=== PATIENT | male | born 1950 | race Caucasian/White ===

== ENCOUNTER → 2018-03-09 | Outpatient (CLI) | payer OTHER ==
[2015-04-01 10:18] VITALS: BP 133/83
[~2018-03-09] MED LIST: IOHEXOL 300 MG/ML 100ML VIAL. IV ONE
--- NOTE | 2018-03-09 14:19 | RAD ---
CT CHEST W/CONTRAST Indication: Shortness of air, cough, abnormal weight loss Technique: Postcontrast CT imaging was performed of the chest, multiplanar reconstruction images submitted. One or more of the following individualized dose reduction techniques were utilized for this examination: 1. Automated exposure control 2. Adjustment of the mA and/or kV according to patient size 3. Use of iterative reconstruction technique. Contrast: 75 cc Omnipaque 300 Comparison: June 23, 2006 Findings: There is centrilobular emphysema. Minimal density in the tracheal lumen more likely due to mucus. There is no infiltrate, pleural or pericardial effusion, pneumothorax. There is no suspicious pulmonary nodularity. Thoracic aortic caliber is within normal limits without intraluminal flap. There is small hypodense lesion of the right thyroid gland about 0.7 cm. No significantly enlarged nodes are identified of the chest. There is probable mild coronary calcification. There is small hiatal hernia, relative nonspecific wall thickening of involved segment. There is a hypodense lesion inferiorly of the right lobe of the liver about 1.5 cm in size with internal density characteristics suggestive of a cyst 4-5 Hounsfield units. There is mild superior thoracic levoscoliosis. IMPRESSION: 1. There is centrilobular emphysema. 2. There is a small hypodense lesion right thyroid gland. 3. There is a small hiatal hernia, nonspecific wall thickening of involved segment. Electronically signed by: Clyde Monroe MD (03/09/2018 2:16 PM) [id number]
== END | disposition home or self-care (01) ==
LOC: CT 11:36
PROVIDERS: ATTEND Physician Assistant
DX: J43.2 Centrilobular emphysema (principal); R06.02 Shortness of breath; R63.4 Abnormal weight loss; E07.9 Disorder of thyroid, unspecified; K44.9 Diaphragmatic hernia without obstruction or gangrene
CPT/HCPCS: 71260; Q9967

== ENCOUNTER → 2018-03-23 | Outpatient (CLI) | payer OTHER ==
[2015-04-01 10:18] VITALS: BP 133/83
--- NOTE | 2018-03-23 16:23 | RAD ---
Examination: Ultrasound thyroid HISTORY: History of thyroid nodule on CT scan COMPARISON: None available. FINDINGS: The right lobe of the thyroid gland measures 4.7 x 1.8 x 1.3 cm. The left lobe of the thyroid gland measures 4.5 x 1.5 x 1.2 cm. Multiple solid nodules identified in the right lobe of the thyroid gland with the largest measuring 1.1 cm. The isthmus measures 3.8 mm in AP dimension. Solid-appearing nodules identified in the left lobe of the thyroid gland with the largest measuring 1.6 cm. IMPRESSION: Multiple complex nodules identified in the right and left lobes of thyroid gland with the largest measuring 1.6 cm in the left lobe. ACR TR 3. Recommend close interval follow-up examination in 6 months. Electronically signed by: Julián Hanson MD (03/23/2018 4:20 PM) [id number]
== END | disposition home or self-care (01) ==
LOC: US 15:00
PROVIDERS: ATTEND Physician Assistant
DX: E04.2 Nontoxic multinodular goiter (principal)
CPT/HCPCS: 76536

== ENCOUNTER → 2018-05-25 | Outpatient (CLI) | payer OTHER ==
[2015-04-01 10:18] VITALS: BP 133/83
--- NOTE | 2018-05-25 17:05 | RAD ---
CHEST PA LATERAL Clinical indications: copd, dyspnea COMPARISON: No previous chest x-rays available. Findings: Hyperinflation is seen consistent with COPD. No acute lung infiltrate or pleural effusion or pulmonary edema or lung mass or pneumothorax is seen. The heart size, pulmonary vasculature, mediastinum and both jenny are unremarkable. The osseous structures appear intact. Impression: No acute radiographic abnormality is seen. Electronically signed by: Betito Nettles MD (05/25/2018 5:01 PM) [place] [id number]
== END | disposition home or self-care (01) ==
LOC: RAD 12:07
PROVIDERS: ATTEND Internal Medicine Pulmonary Disease
DX: R06.00 Dyspnea, unspecified (principal)
CPT/HCPCS: 71046

== ENCOUNTER → 2018-10-16 | Outpatient (CLI) | payer OTHER ==
[2015-04-01 10:18] VITALS: BP 133/83
--- NOTE | 2018-10-16 15:51 | RAD ---
Thyroid ultrasound dated 10/16/2018. Comparison made to 03/23/2018. CLINICAL INDICATION: Follow-up thyroid nodule. Findings: Right lobe thyroid gland measures 4.5 x 1.5 x 1.7 cm. Left lobe measures 4.7 x 1.4 x 1.1 cm. Multiple small nodular foci scattered throughout the bilateral thyroid lobes. The largest nodule on the left superior to mid pole measures 1.6 cm maximum dimension versus 1.7 cm previously. There is also hypoechoic nodule at the lower pole left thyroid lobe that measures about 9 mm maximum dimension, unchanged. There are 4 nodules on the right, largest of which measures 10 mm at the midpole region versus 8 mm previously. There is a more hypoechoic nodule at the mid to lower pole region that measures 8 mm maximum dimension versus 11 mm previously. Tiny nodules at the upper and lower pole are unchanged. IMPRESSION: 1. Multiple bilateral thyroid nodules, overall not significantly changed from prior study. Continued follow-up imaging may be warranted to ensure stability. Electronically signed by: Lito Doran MD (10/16/2018 3:48 PM) [id number]
== END | disposition home or self-care (01) ==
LOC: US 15:00
PROVIDERS: ATTEND Physician Assistant
DX: E04.2 Nontoxic multinodular goiter (principal)
CPT/HCPCS: 76536

== ENCOUNTER 2020-04-21 13:40 | Inpatient (IN) | payer MEDICARE, OTHER ==
[~2020-04-21] VITALS: Ht 177.8 cm; Wt 97.8 kg
[2020-04-21] MEDS ORDERED: AZITHRMYCN 500MG IVPB FOR OMNI 250 ML IV ONE (16:45)
[2020-04-21] MEDS ORDERED: DEXAMETHASONE SOD PHOS 4 MG/ML VIAL IVP ONE (16:45)
[2020-04-21 16:49] LABS: BILIRUBIN,URINE NEGATIVE (NEG); CLARITY,URINE CLEAR; COLOR,URINE YELLOW; NITRITE,URINE NEGATIVE (NEG); PROTEIN,URINE NEGATIVE (NEG-TRACE)
[2020-04-21 16:56] LABS: BACTERIA,URINE 0 /HPF (0-FEW); RBC,URINE 0 /HPF (0-2)
[2020-04-21 17:15] LABS: BASO % 0 % (0-3); EOS % 0 % (0-3); HEMATOCRIT 50.5 % (39.0-53.0); HEMOGLOBIN 17.1 g/dL (13.0-17.5); LYMPH # 0.7 x10^3/uL (1.0-4.8); LYMPH % 7 % (24-48); MEAN CORPUSCULAR HEMOGLOBIN 30 pg (25-35); MEAN CORPUSCULAR HGB CONC 34 g/dL (31-37); MEAN CORPUSCULAR VOLUME 89 fL (79-100); MONO # 0.5 x10^3/uL (0.0-1.1); MONO % 5 % (0-9); NEUT # 8.9 x10^3/uL (1.8-7.7); NEUT % 88 % (31-73); PLATELET COUNT 233 x10^3/uL (140-400); RED BLOOD COUNT 5.67 x10^6/uL (4.30-5.70); RED CELL DISTRIBUTION WIDTH 15.2 % (11.5-14.5); WHITE BLOOD COUNT 10.1 x10^3/uL (4.0-11.0)
[2020-04-21 17:32] LABS: CALCIUM 8.3 mg/dL (8.5-10.1); CREATININE 0.8 mg/dL (0.7-1.3); GFR 95.3; POTASSIUM 3.6 mmol/L (3.5-5.1)
[2020-04-21 17:36] LABS: % BANDS 5 % (0-9); % LYMPHS 9 % (24-48); % MONOS 3 % (0-10); % SEGS 83 % (35-66)
[2020-04-21 17:37] LABS: PLT ESTIMATE ADEQUATE (ADEQUATE); TOXIC GRANULATION SLIGHT
[2020-04-21 17:38] LABS: ALBUMIN 2.8 g/dL (3.4-5.0); ALBUMIN/GLOBULIN RATIO 0.7 (1.0-1.7); MAGNESIUM 1.9 mg/dL (1.8-2.4); TOTAL BILIRUBIN 0.4 mg/dL (0.2-1.0); TOTAL PROTEIN 6.7 g/dL (6.4-8.2)
[2020-04-21] MEDS ORDERED: IOHEXOL 350 MG/ML 100 ML VIAL. IV ONE (18:00)
[2020-04-21] MEDS ORDERED: IV NORMAL SALINE 1000ML BAG 1,000 ML IV ONE (18:00)
[2020-04-21] MEDS ORDERED: CONTRAST GIVEN. MC PRN (18:15)
--- NOTE | 2020-04-21 18:30 | RAD ---
Exam: CT chest with contrast INDICATION: Short of air, Covid positive TECHNIQUE: Sequential axial images through the chest obtained following the administration of 100 mL of Omni 350 IV contrast. Sagittal and coronal reformatted images were reconstructed from the axial data and reviewed. 3-D reformatted images were reconstructed from the axial data and reviewed. Comparisons: Chest x-ray 05/25/2018 FINDINGS: Visualized portions of the thyroid are unremarkable. No enlarged mediastinal lymph nodes are identified. Mild right hilar adenopathy is noted. Heart size is normal. No pericardial effusion. Thoracic aorta has a normal course and caliber. Pulmonary artery is not enlarged. No pulmonary embolus identified within the main, lobar or segmental pulmonary arteries. Airways are patent. Patchy areas of consolidation in the lungs bilaterally. No suspicious lung nodules are identified. No pleural effusion or thickening. Visualized upper abdomen is unremarkable. Small hiatal hernia is noted. No suspicious osseous lesions or acute fractures. IMPRESSION: 1. No pulmonary embolus and infarct within the main, lobar or segmental pulmonary arteries. 2. Patchy consolidative changes in the lungs bilaterally. May be infectious or inflammatory in etiology. Exposure: One or more of the following in the visualized dose reduction techniques were utilized for this examination: 1. Automated exposure control 2. Adjustment of the MA and/or KV according to patient size 3. Use of iterative of reconstructive technique Electronically signed by: Opal Shelton MD (04/21/2020 6:27 PM) [facility]
--- NOTE | 2020-04-21 18:45 | PHYS DOC ---
Past Medical History Past Medical History: Anxiety, COPD, High Cholesterol, Hypertension Past Surgical History: Appendectomy, Cholecystectomy, Other Additional Past Surgical Histo: R knee surgery Smoking Status: Never Smoker Alcohol Use: None Drug Use: None General Adult EDM: Chief Complaint: SHORTNESS OF BREATH HPI: HPI: Patient is a 69 year old male with past medical history of COPD presents with 1 week history of subjective fever/chills, cough, body aches, and shortness of air. Patient reports he had a COVID test performed yesterday at home saliva kit which reportedly came back positive. Denies leg swelling or calf tenderness. Denies history of DVT/PE. Denies known sick contacts. Review of Systems: Review of Systems: Constitutional: Reports subjective fever and chills; reports body aches Eyes: Denies redness or eye pain HENT: Denies nasal congestion or sore throat Respiratory: Reports cough and shortness of breath Cardiovascular: Denies chest pain or palpitations GI: Denies abdominal pain, nausea, or vomiting : Denies dysuria or hematuria Musculoskeletal: Denies back pain or joint pain Integument: Denies rash or skin lesions Neurologic: Denies headache, focal weakness or sensory changes Complete systems were reviewed and found to be within normal limits, except as documented in this note. Current Medications: Current Medications Medications (Trade) Dose Ordered Sig/Hunter Start Time Stop Time Status Last Admin Dose Admin Azithromycin 250 ml @ 250 mls/hr 1X ONCE 04/21/20 16:45 04/21/20 17:44 DC 04/21/20 17:53 250 MLS/HR Dexamethasone Sodium Phosphate (Decadron) 10 mg 1X ONCE 04/21/20 16:45 04/21/20 16:46 DC 04/21/20 17:52 10 MG Info (CONTRAST GIVEN -- Rx MONITORING) 1 each PRN DAILY PRN 04/21/20 18:15 04/23/20 18:14 Iohexol (Omnipaque 350 Mg/ml) 100 ml 1X ONCE 04/21/20 18:00 04/21/20 18:01 DC 04/21/20 18:13 100 ML Sodium Chloride 1,000 ml @ 1,000 mls/hr 1X ONCE 04/21/20 18:00 04/21/20 18:59 Allergies: Allergies: Allergies Coded Allergies Type Severity Reaction Last Updated Verified No Known Drug Allergies 04/01/15 No Physical Exam: PE: Constitutional: Well developed, well nourished, no acute distress, non-toxic appearance HENT: Normocephalic, atraumatic Eyes: Conjunctiva normal, no discharge Neck: Normal range of motion, no tenderness, supple, no meningeal signs Lungs & Thorax: No respiratory distress, equal chest rise and fall Abdomen: Soft, no tenderness Skin: Warm, dry, no erythema, no rash Extremities: No tenderness, ROM intact, no edema Neurologic: Alert and oriented X 3, normal motor function, normal sensory function, no focal deficits noted Psychologic: Affect normal, judgment normal Current Patient Data: Labs: Laboratory Tests Test 04/21/20 15:42 04/21/20 16:50 Urine Collection Type Unknown Urine Color Yellow Urine Clarity Clear Urine pH 6.0 (<5.0-8.0) Urine Specific [place] 1.025 (1.000-1.030) Urine Protein Negative mg/dL (NEG-TRACE) Urine Glucose (UA) >=1000 mg/dL (NEG) Urine Ketones (Stick) Negative mg/dL (NEG) Urine Blood Negative (NEG) Urine Nitrite Negative (NEG) Urine Bilirubin Negative (NEG) Urine Urobilinogen Dipstick 1.0 mg/dL (0.2 mg/dL) Urine Leukocyte Esterase Negative (NEG) Urine RBC 0 /HPF (0-2) Urine WBC 1-4 /HPF (0-4) Urine Squamous Epithelial Cells Few /LPF Urine Transitional Epithelial Cells Few /LPF Urine Bacteria 0 /HPF (0-FEW) Urine Mucus Marked /LPF White Blood Count 10.1 x10^3/uL (4.0-11.0) Red Blood Count 5.67 x10^6/uL (4.30-5.70) Hemoglobin 17.1 g/dL (13.0-17.5) Hematocrit 50.5 % (39.0-53.0) Mean Corpuscular Volume 89 fL (79-100) Mean Corpuscular Hemoglobin 30 pg (25-35) Mean Corpuscular Hemoglobin Concent 34 g/dL (31-37) Red Cell Distribution Width 15.2 % (11.5-14.5) H Platelet Count 233 x10^3/uL (140-400) Neutrophils (%) (Auto) 88 % (31-73) H Lymphocytes (%) (Auto) 7 % (24-48) L Monocytes (%) (Auto) 5 % (0-9) Eosinophils (%) (Auto) 0 % (0-3) Basophils (%) (Auto) 0 % (0-3) Neutrophils # (Auto) 8.9 x10^3/uL (1.8-7.7) H Lymphocytes # (Auto) 0.7 x10^3/uL (1.0-4.8) L Monocytes # (Auto) 0.5 x10^3/uL (0.0-1.1) Eosinophils # (Auto) 0.0 x10^3/uL (0.0-0.7) Basophils # (Auto) 0.0 x10^3/uL (0.0-0.2) Segmented Neutrophils % 83 % (35-66) H Band Neutrophils % 5 % (0-9) Lymphocytes % 9 % (24-48) L Monocytes % 3 % (0-10) Toxic Granulation Slight Platelet Estimate Adequate (ADEQUATE) D-Dimer (Earlene) 0.54 ug/mlFEU (0.00-0.50) H Sodium Level 137 mmol/L (136-145) Potassium Level 3.6 mmol/L (3.5-5.1) Chloride Level 102 mmol/L (98-107) Carbon Dioxide Level 25 mmol/L (21-32) Anion Gap 10 (6-14) Blood Urea Nitrogen 11 mg/dL (8-26) Creatinine 0.8 mg/dL (0.7-1.3) Estimated GFR (Cockcroft-Gault) 95.3 BUN/Creatinine Ratio 14 (6-20) Glucose Level 156 mg/dL (70-99) H Calcium Level 8.3 mg/dL (8.5-10.1) L Magnesium Level 1.9 mg/dL (1.8-2.4) Total Bilirubin 0.4 mg/dL (0.2-1.0) Aspartate Amino Transferase (AST) 34 U/L (15-37) Alanine Aminotransferase (ALT) 38 U/L (16-63) Alkaline Phosphatase 82 U/L (46-116) Creatine Kinase 342 U/L (39-308) H Creatine Kinase MB (Mass) 7.2 ng/mL (0.0-3.6) H Creatine Kinase MB Relative Index 2.1 % (0-4) Troponin I Quantitative < 0.017 ng/mL (0.000-0.055) [id number]-Type Natriuretic Peptide 218 pg/mL (0-124) H Total Protein 6.7 g/dL (6.4-8.2) Albumin 2.8 g/dL (3.4-5.0) L Albumin/Globulin Ratio 0.7 (1.0-1.7) L Laboratory Tests 04/21/20 16:50 Laboratory Tests 04/21/20 16:50 Vital Signs: Vital Signs Date Time Temp Pulse Resp B/P (MAP) Pulse Ox O2 Delivery O2 Flow Rate FiO2 04/21/20 13:55 98.6 110 19 142/82 (102) 91 Room Air 98.6 EKG: EKG: @1802 NSR at 100bpm, NO ST elevation, QRS 90ms, QT/QTc 364/473ms Radiology/Procedures: Radiology/Procedures: PROCEDURE: CT ANGIOGRAPHY CHEST Exam: CT chest with contrast INDICATION: Short of air, Covid positive TECHNIQUE: Sequential axial images through the chest obtained following the administration of 100 mL of Omni 350 IV contrast. Sagittal and coronal reformatted images were reconstructed from the axial data and reviewed. 3-D reformatted images were reconstructed from the axial data and reviewed. Comparisons: Chest x-ray 05/25/2018 FINDINGS: Visualized portions of the thyroid are unremarkable. No enlarged mediastinal lymph nodes are identified. Mild right hilar adenopathy is noted. Heart size is normal. No pericardial effusion. Thoracic aorta has a normal course and caliber. Pulmonary artery is not enlarged. No pulmonary embolus identified within the main, lobar or segmental pulmonary arteries. Airways are patent. Patchy areas of consolidation in the lungs bilaterally. No suspicious lung nodules are identified. No pleural effusion or thickening. Visualized upper abdomen is unremarkable. Small hiatal hernia is noted. No suspicious osseous lesions or acute fractures. IMPRESSION: 1. No pulmonary embolus and infarct within the main, lobar or segmental pulmonary arteries. 2. Patchy consolidative changes in the lungs bilaterally. May be infectious or inflammatory in etiology. Exposure: One or more of the following in the visualized dose reduction techniques were utilized for this examination: 1. Automated exposure control 2. Adjustment of the MA and/or KV according to patient size 3. Use of iterative of reconstructive technique Electronically signed by: Opal hSelton MD (04/21/2020 6:27 PM) [facility] Course & Med Decision Making: Course & Med Decision Making Pertinent Labs and Imaging studies reviewed. (See chart for details) Patient presents with past medical history of COPD who had tested positive for Covid yesterday. Reports symptoms been ongoing for the past week but dyspnea with exertion has worsened. EKG stable. Labs obtained and posted to chart. Troponin within normal limits. D-dimer elevated. CTA chest without signs of PE however does note signs of viral pneumonia. Symptomatic dexamethasone provided. Empiric azithromycin also initiated. Patient requiring admission for further evaluation and treatment. Discussed with Dr. Hoyos (hospitalist) who is in agreement with admission. Discussed findings and plan with patient, who acknowledges understanding and agreement. Thong Disclaimer: Thong Disclaimer: This electronic medical record was generated, in whole or in part, using a voice recognition dictation system. Departure Departure Impression: Primary Impression: Pneumonia due to COVID-19 virus Disposition: ADMITTED INPT THIS HOSP Admitting Physician: SUSAN (Romain) Condition: STABLE Referrals: MEENA BENTON (PCP) THERON BELL DO Apr 21, 2020 18:45
[2020-04-21] MEDS ORDERED: ACETAMINOPHEN 325 MG TABLET. PO PRN (19:00)
[2020-04-21 21:09] VITALS: BP 123/74
[2020-04-21 23:00] VITALS: BP 155/76
[2020-04-22 03:00] VITALS: BP 147/85
[2020-04-22] MEDS ORDERED: cholesterol med (06:56)
[2020-04-22] MEDS ORDERED: bp med (06:56)
[2020-04-22] MEDS ORDERED: [UNRECOGNIZED DRUG - REMARK] (06:57)
[2020-04-22 07:00] VITALS: BP 165/82
[2020-04-22] MEDS ORDERED: FLU VACC QS 2020-21(6MOS+)/PF 0.5 ML SYRINGE. VAX IM ONE (09:00)
--- NOTE | 2020-04-22 09:01 | EKG ---
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
--- NOTE | 2020-04-22 09:24 | PDOC1 ---
History and Physical Date of Admission Date of Admission DATE: 04/22/20 TIME: 09:23 Identification/Chief Complaint Chief Complaint SEEN IN ER WITH COVID-19 SYMPTOMS, NOW ON ROOM AIR 69 year old male with past medical history of COPD presents with 1 week history of subjective fever/chills, cough, body aches, and shortness of air. Patient reports he had a COVID test performed yesterday at home saliva kit which reportedly came back positive. Denies leg swelling or calf tenderness. Denies history of DVT/PE. Denies known sick contacts. Past Medical History Past Medical History Past Medical History Past Medical History Past Medical History: Anxiety, COPD, High Cholesterol, Hypertension Past Surgical History: Appendectomy, Cholecystectomy, Other Additional Past Surgical Histo: R knee surgery Smoking Status: Never Smoker Alcohol Use: None Drug Use: None fhx htn Cardiovascular: HTN, Hyperlipidemia Family History Family History: Hypertension Social History Smoke: No ALCOHOL: none Drugs: None Current Problem List Problem List Problems Medical Problems: (1) Pneumonia due to COVID-19 virus Status: Acute Current Medications Current Medications Current Medications Dexamethasone Sodium Phosphate (Decadron) 10 mg 1X ONCE IVP Last administered on 04/21/20at 17:52; Start 04/21/20 at 16:45; Stop 04/21/20 at 16:46; Status DC Azithromycin 250 ml @ 250 mls/hr 1X ONCE IV Last administered on 04/21/20at 17:53; Start 04/21/20 at 16:45; Stop 04/21/20 at 17:44; Status DC Sodium Chloride 1,000 ml @ 1,000 mls/hr 1X ONCE IV Last administered on 04/21/20at 19:55; Start 04/21/20 at 18:00; Stop 04/21/20 at 18:59; Status DC Iohexol (Omnipaque 350 Mg/ml) 100 ml 1X ONCE IV Last administered on 04/21/20at 18:13; Start 04/21/20 at 18:00; Stop 04/21/20 at 18:01; Status DC Info (CONTRAST GIVEN -- Rx MONITORING) 1 each PRN DAILY PRN MC SEE COMMENTS; Start 04/21/20 at 18:15; Stop 04/23/20 at 18:14 Acetaminophen (Tylenol) 650 mg PRN Q4HRS PRN PO FEVER > 100.3'F; Start 04/21/20 at 19:00; Stop 04/22/20 at 18:59 Influenza Virus Vaccine Quadrival (Fluzone Quad Syringe) 0.5 ml ONCE ONCE VAX IM ; Start 04/22/20 at 09:00; Stop 04/22/20 at 09:01; Status DC Active Scripts Active Reported [happy pill] [cholesterol med] [bp med] Allergies Allergies: Coded Allergies: No Known Drug Allergies (Unverified , 04/01/15) ROS Review of System Constitutional: Reports subjective fever and chills; reports body aches Eyes: Denies redness or eye pain HENT: Denies nasal congestion or sore throat Respiratory: Reports cough and shortness of breath Cardiovascular: Denies chest pain or palpitations GI: Denies abdominal pain, nausea, or vomiting : Denies dysuria or hematuria Musculoskeletal: Denies back pain or joint pain Integument: Denies rash or skin lesions Neurologic: Denies headache, focal weakness or sensory changes 14 PT systems were reviewed and found to be within normal limits, except as documented General: YES: Fatigue Respiratory: YES: Shortness of breath Cardiovascular: No Chest Pain, No Palpitations, No Orthopnea, No Paroxysmal Noc. Dyspnea, No Edema, No Lt Headedness, No Other Musculoskeletal: No Gait Disturbance, No Joint Pain, No Joint Stiffness, No Fide nt Swelling, No Muscle Pain, No Muscular Weakness, No Pain In:, No Swelling In:, No Other Skin: No Dry Skin, No Eczema, No Hair Changes, No Lumps, No Mole Changes, No Mottling, No Nail Changes, No Pruritus, No Rash, No Skin Lesion Changes, No Other, No Acne Physical Exam Physical Exam Constitutional: Well developed, well nourished, no acute distress, non-toxic appearance HENT: Normocephalic, atraumatic Eyes: Conjunctiva normal, no discharge Neck: Normal range of motion, no tenderness, supple, no meningeal signs Lungs & Thorax: No respiratory distress, equal chest rise and fall Abdomen: Soft, no tenderness Skin: Warm, dry, no erythema, no rash Extremities: No tenderness, ROM intact, no edema Neurologic: Alert and oriented X 3, normal motor function, normal sensory function, no focal deficits noted Psychologic: Affect normal, judgment normal General: Alert, Oriented X3, Cooperative HEENT: Mucous membr. moist/pink Breasts: Not examined Abdomen: Soft, No tenderness Rectal Exam: not examined PELVIC: Examination not indicated Extremities: No cyanosis, No edema Neuro: Normal speech, Cranial nerves 3-12 NL Psych/Mental Status: Mental status NL, Mood NL Vitals Vitals Vital Signs Date Time Temp Pulse Resp B/P (MAP) Pulse Ox O2 Delivery O2 Flow Rate FiO2 04/22/20 03:00 98.0 89 20 147/85 (105) 94 Room Air 98.0 Labs Labs Laboratory Tests Test 04/21/20 15:42 04/21/20 16:50 04/21/20 22:00 04/22/20 00:15 Urine Collection Type Unknown Urine Color Yellow Urine Clarity Clear Urine pH 6.0 (<5.0-8.0) Urine Specific [place] 1.025 (1.000-1.030) Urine Protein Negative mg/dL (NEG-TRACE) Urine Glucose (UA) >=1000 mg/dL (NEG) Urine Ketones (Stick) Negative mg/dL (NEG) Urine Blood Negative (NEG) Urine Nitrite Negative (NEG) Urine Bilirubin Negative (NEG) Urine Urobilinogen Dipstick 1.0 mg/dL (0.2 mg/dL) Urine Leukocyte Esterase Negative (NEG) Urine RBC 0 /HPF (0-2) Urine WBC 1-4 /HPF (0-4) Urine Squamous Epithelial Cells Few /LPF Urine Transitional Epithelial Cells Few /LPF Urine Bacteria 0 /HPF (0-FEW) Urine Mucus Marked /LPF White Blood Count 10.1 x10^3/uL (4.0-11.0) Red Blood Count 5.67 x10^6/uL (4.30-5.70) Hemoglobin 17.1 g/dL (13.0-17.5) Hematocrit 50.5 % (39.0-53.0) Mean Corpuscular Volume 89 fL (79-100) Mean Corpuscular Hemoglobin 30 pg (25-35) Mean Corpuscular Hemoglobin Concent 34 g/dL (31-37) Red Cell Distribution Width 15.2 % (11.5-14.5) Platelet Count 233 x10^3/uL (140-400) Neutrophils (%) (Auto) 88 % (31-73) Lymphocytes (%) (Auto) 7 % (24-48) Monocytes (%) (Auto) 5 % (0-9) Eosinophils (%) (Auto) 0 % (0-3) Basophils (%) (Auto) 0 % (0-3) Neutrophils # (Auto) 8.9 x10^3/uL (1.8-7.7) Lymphocytes # (Auto) 0.7 x10^3/uL (1.0-4.8) Monocytes # (Auto) 0.5 x10^3/uL (0.0-1.1) Eosinophils # (Auto) 0.0 x10^3/uL (0.0-0.7) Basophils # (Auto) 0.0 x10^3/uL (0.0-0.2) Segmented Neutrophils % 83 % (35-66) Band Neutrophils % 5 % (0-9) Lymphocytes % 9 % (24-48) Monocytes % 3 % (0-10) Toxic Granulation Slight Platelet Estimate Adequate (ADEQUATE) D-Dimer (Earlene) 0.54 ug/mlFEU (0.00-0.50) Sodium Level 137 mmol/L (136-145) Potassium Level 3.6 mmol/L (3.5-5.1) Chloride Level 102 mmol/L (98-107) Carbon Dioxide Level 25 mmol/L (21-32) Anion Gap 10 (6-14) Blood Urea Nitrogen 11 mg/dL (8-26) Creatinine 0.8 mg/dL (0.7-1.3) Estimated GFR (Cockcroft-Gault) 95.3 BUN/Creatinine Ratio 14 (6-20) Glucose Level 156 mg/dL (70-99) Calcium Level 8.3 mg/dL (8.5-10.1) Magnesium Level 1.9 mg/dL (1.8-2.4) Total Bilirubin 0.4 mg/dL (0.2-1.0) Aspartate Amino Transf (AST/SGOT) 34 U/L (15-37) Alanine Aminotransferase (ALT/SGPT) 38 U/L (16-63) Alkaline Phosphatase 82 U/L (46-116) Creatine Kinase 342 U/L (39-308) Creatine Kinase MB (Mass) 7.2 ng/mL (0.0-3.6) Creatine Kinase MB Relative Index 2.1 % (0-4) Troponin I Quantitative < 0.017 ng/mL (0.000-0.055) < 0.017 ng/mL (0.000-0.055) < 0.017 ng/mL (0.000-0.055) TI-Cao-K-Type Natriuretic Peptide 218 pg/mL (0-124) Total Protein 6.7 g/dL (6.4-8.2) Albumin 2.8 g/dL (3.4-5.0) Albumin/Globulin Ratio 0.7 (1.0-1.7) Laboratory Tests Test 04/21/20 15:42 04/21/20 16:50 04/21/20 22:00 04/22/20 00:15 Urine Collection Type Unknown Urine Color Yellow Urine Clarity Clear Urine pH 6.0 (<5.0-8.0) Urine Specific [place] 1.025 (1.000-1.030) Urine Protein Negative mg/dL (NEG-TRACE) Urine Glucose (UA) >=1000 mg/dL (NEG) Urine Ketones (Stick) Negative mg/dL (NEG) Urine Blood Negative (NEG) Urine Nitrite Negative (NEG) Urine Bilirubin Negative (NEG) Urine Urobilinogen Dipstick 1.0 mg/dL (0.2 mg/dL) Urine Leukocyte Esterase Negative (NEG) Urine RBC 0 /HPF (0-2) Urine WBC 1-4 /HPF (0-4) Urine Squamous Epithelial Cells Few /LPF Urine Transitional Epithelial Cells Few /LPF Urine Bacteria 0 /HPF (0-FEW) Urine Mucus Marked /LPF White Blood Count 10.1 x10^3/uL (4.0-11.0) Red Blood Count 5.67 x10^6/uL (4.30-5.70) Hemoglobin 17.1 g/dL (13.0-17.5) Hematocrit 50.5 % (39.0-53.0) Mean Corpuscular Volume 89 fL (79-100) Mean Corpuscular Hemoglobin 30 pg (25-35) Mean Corpuscular Hemoglobin Concent 34 g/dL (31-37) Red Cell Distribution Width 15.2 % (11.5-14.5) Platelet Count 233 x10^3/uL (140-400) Neutrophils (%) (Auto) 88 % (31-73) Lymphocytes (%) (Auto) 7 % (24-48) Monocytes (%) (Auto) 5 % (0-9) Eosinophils (%) (Auto) 0 % (0-3) Basophils (%) (Auto) 0 % (0-3) Neutrophils # (Auto) 8.9 x10^3/uL (1.8-7.7) Lymphocytes # (Auto) 0.7 x10^3/uL (1.0-4.8) Monocytes # (Auto) 0.5 x10^3/uL (0.0-1.1) Eosinophils # (Auto) 0.0 x10^3/uL (0.0-0.7) Basophils # (Auto) 0.0 x10^3/uL (0.0-0.2) Segmented Neutrophils % 83 % (35-66) Band Neutrophils % 5 % (0-9) Lymphocytes % 9 % (24-48) Monocytes % 3 % (0-10) Toxic Granulation Slight Platelet Estimate Adequate (ADEQUATE) D-Dimer (Earlene) 0.54 ug/mlFEU (0.00-0.50) Sodium Level 137 mmol/L (136-145) Potassium Level 3.6 mmol/L (3.5-5.1) Chloride Level 102 mmol/L (98-107) Carbon Dioxide Level 25 mmol/L (21-32) Anion Gap 10 (6-14) Blood Urea Nitrogen 11 mg/dL (8-26) Creatinine 0.8 mg/dL (0.7-1.3) Estimated GFR (Cockcroft-Gault) 95.3 BUN/Creatinine Ratio 14 (6-20) Glucose Level 156 mg/dL (70-99) Calcium Level 8.3 mg/dL (8.5-10.1) Magnesium Level 1.9 mg/dL (1.8-2.4) Total Bilirubin 0.4 mg/dL (0.2-1.0) Aspartate Amino Transf (AST/SGOT) 34 U/L (15-37) Alanine Aminotransferase (ALT/SGPT) 38 U/L (16-63) Alkaline Phosphatase 82 U/L (46-116) Creatine Kinase 342 U/L (39-308) Creatine Kinase MB (Mass) 7.2 ng/mL (0.0-3.6) Creatine Kinase MB Relative Index 2.1 % (0-4) Troponin I Quantitative < 0.017 ng/mL (0.000-0.055) < 0.017 ng/mL (0.000-0.055) < 0.017 ng/mL (0.000-0.055) PT-Vhd-Z-Type Natriuretic Peptide 218 pg/mL (0-124) Total Protein 6.7 g/dL (6.4-8.2) Albumin 2.8 g/dL (3.4-5.0) Albumin/Globulin Ratio 0.7 (1.0-1.7) Images Images INDICATION: Short of air, Covid positive TECHNIQUE: Sequential axial images through the chest obtained following the administration of 100 mL of Omni 350 IV contrast. Sagittal and coronal reformatted images were reconstructed from the axial data and reviewed. 3-D reformatted images were reconstructed from the axial data and reviewed. Comparisons: Chest x-ray 05/25/2018 FINDINGS: Visualized portions of the thyroid are unremarkable. No enlarged mediastinal lymph nodes are identified. Mild right hilar adenopathy is noted. Heart size is normal. No pericardial effusion. Thoracic aorta has a normal course and caliber. Pulmonary artery is not enlarged. No pulmonary embolus identified within the main, lobar or segmental pulmonary arteries. Airways are patent. Patchy areas of consolidation in the lungs bilaterally. No suspicious lung nodules are identified. No pleural effusion or thickening. Visualized upper abdomen is unremarkable. Small hiatal hernia is noted. No suspicious osseous lesions or acute fractures. IMPRESSION: 1. No pulmonary embolus and infarct within the main, lobar or segmental pulmonary arteries. 2. Patchy consolidative changes in the lungs bilaterally. May be infectious or inflammatory in etiology. Exposure: One or more of the following in the visualized dose reduction techniques were utilized for this examination: 1. Automated exposure control 2. Adjustment of the MA and/or KV according to patient size 3. Use of iterative of reconstructive technique Electronically signed by: Opal Khoury MD (04/21/2020 6:27 PM) [facility] DICTATED and SIGNED BY: OPAL KHOURY MD VTE Prophylaxis Ordered VTE Prophylaxis Devices: No VTE Pharmacological Prophylaxi: Yes Assessment/Plan Assessment/Plan Impression: Pneumonia due to COVID-19 virus No pulmonary embolus and infarct within the main, lobar or segmental pulmonary arteries.Patchy consolidative changes in the lungs bilaterally. May be infectious or inflammatory in etiology. BY CTA CHEST ADMITTED, OBSER OBSERVATION, D/C TODAY OK WITH DR ESPINAL PER RN PO STEROIDS ZITHROMAX SEE PCP MONDAY Justifications for Admission Other Justification RANDALL DIXON MD Apr 22, 2020 09:24
[2020-04-22] MEDS ORDERED: ATOR40TA59 PO (09:42)
[2020-04-22] MEDS ORDERED: LOSA-73 PO (09:42)
[2020-04-22] MEDS ORDERED: CITA40TA5 PO (09:42)
[2020-04-22] MEDS ORDERED: PANT20TA2 PO (09:42)
[2020-04-22] MEDS ORDERED: PANTOPRAZOLE 40 MG TABLET.DR. PO SCH (10:30)
[2020-04-22] MEDS ORDERED: CITALOPRAM 20 MG TABLET. PO SCH (10:30)
[2020-04-22] MEDS ORDERED: LOSARTAN POTASSIUM 50 MG TABLET. PO SCH (10:30)
[2020-04-22 11:00] VITALS: BP 161/77
--- NOTE | 2020-04-22 11:28 | PDOC3 ---
Discharge Summary Date of Admission: Apr 21, 2020 Date of Discharge: Apr 22, 2020 Follow-Up: 3-5 days Admitting Diagnosis comment: VTE Prophylaxis Ordered VTE Prophylaxis Devices: No VTE Pharmacological Prophylaxi: Yes Assessment/Plan Assessment/Plan Impression: Pneumonia due to COVID-19 virus No pulmonary embolus and infarct within the main, lobar or segmental pulmonary arteries.Patchy consolidative changes in the lungs bilaterally. May be infectious or inflammatory in etiology. BY CTA CHEST ADMITTED, OBSER OBSERVATION, D/C TODAY OK WITH DR TEDDY RICHARDSON RN PO STEROIDS ZITHROMAX SEE PCP MONDAY Identification/Chief Complaint Chief Complaint SEEN IN ER WITH COVID-19 SYMPTOMS, NOW ON ROOM AIR 69 year old male with past medical history of COPD presents with 1 week history of subjective fever/chills, cough, body aches, and shortness of air. Patient reports he had a COVID test performed yesterday at home saliva kit which reportedly came back positive. Denies leg swelling or calf tenderness. Denies history of DVT/PE. Denies known sick contacts. Past Medical History Past Medical History Past Medical History Past Medical History Past Medical History: Anxiety, COPD, High Cholesterol, Hypertension Past Surgical History: Appendectomy, Cholecystectomy, Other Additional Past Surgical Histo: R knee surgery Smoking Status: Never Smoker Alcohol Use: None Drug Use: None fhx htn Cardiovascular: HTN, Hyperlipidemia Family History Family History: Hypertension Social History Smoke: No ALCOHOL: none Drugs: None Current Problem List Problem List Problems Medical Problems: (1) Pneumonia due to COVID-19 virus Status: Acute Current Medications Current Medications Current Medications Dexamethasone Sodium Phosphate (Decadron) 10 mg 1X ONCE IVP Last administered on 04/21/20at 17:52; Start 04/21/20 at 16:45; Stop 04/21/20 at 16:46; Status DC Azithromycin 250 ml @ 250 mls/hr 1X ONCE IV Last administered on 04/21/20at 17:53; Start 04/21/20 at 16:45; Stop 04/21/20 at 17:44; Status DC Sodium Chloride 1,000 ml @ 1,000 mls/hr 1X ONCE IV Last administered on 04/21/20at 19:55; Start 04/21/20 at 18:00; Stop 04/21/20 at 18:59; Status DC Iohexol (Omnipaque 350 Mg/ml) 100 ml 1X ONCE IV Last administered on 04/21at 18:13; Start 04/21/20 at 18:00; Stop 04/21/20 at 18:01; Status DC Info (CONTRAST GIVEN -- Rx MONITORING) 1 each PRN DAILY PRN MC SEE COMMENTS; Start 04/21/20 at 18:15; Stop 04/23/20 at 18:14 Acetaminophen (Tylenol) 650 mg PRN Q4HRS PRN PO FEVER > 100.3'F; Start 04/21/20 at 19:00; Stop 04/22/20 at 18:59 Influenza Virus Vaccine Quadrival (Fluzone Quad [id number] Syringe) 0.5 ml ONCE ONCE VAX IM ; Start 04/22/20 at 09:00; Stop 04/22/20 at 09:01; Status DC Active Scripts Active Reported [happy pill] [cholesterol med] [bp med] Allergies Allergies: Coded Allergies: No Known Drug Allergies (Unverified , 04/01/15) ROS Review of System Constitutional: Reports subjective fever and chills; reports body aches Eyes: Denies redness or eye pain HENT: Denies nasal congestion or sore throat Respiratory: Reports cough and shortness of breath Cardiovascular: Denies chest pain or palpitations GI: Denies abdominal pain, nausea, or vomiting : Denies dysuria or hematuria Musculoskeletal: Denies back pain or joint pain Integument: Denies rash or skin lesions Neurologic: Denies headache, focal weakness or sensory changes 14 PT systems were reviewed and found to be within normal limits, except as documented General: YES: Fatigue Respiratory: YES: Shortness of breath Cardiovascular: No Chest Pain, No Palpitations, No Orthopnea, No Paroxysmal Noc. Dyspnea, No Edema, No Lt Headedness, No Other Musculoskeletal: No Gait Disturbance, No Joint Pain, No Joint Stiffness, No Joint Swelling, No Muscle Pain, No Muscular Weakness, No Pain In:, No Swelling In:, No Other Skin: No Dry Skin, No Eczema, No Hair Changes, No Lumps, No Mole Changes, No Mottling, No Nail Changes, No Pruritus, No Rash, No Skin Lesion Changes, No Other, No Acne Physical Exam Physical Exam Constitutional: Well developed, well nourished, no acute distress, non-toxic appearance HENT: Normocephalic, atraumatic Eyes: Conjunctiva normal, no discharge Neck: Normal range of motion, no tenderness, supple, no meningeal signs Lungs & Thorax: No respiratory distress, equal chest rise and fall Abdomen: Soft, no tenderness Skin: Warm, dry, no erythema, no rash Extremities: No tenderness, ROM intact, no edema Neurologic: Alert and oriented X 3, normal motor function, normal sensory function, no focal deficits noted Psychologic: Affect normal, judgment normal General: Alert, Oriented X3, Cooperative HEENT: Mucous membr. moist/pink Breasts: Not examined Abdomen: Soft, No tenderness Rectal Exam: not examined PELVIC: Examination not indicated Extremities: No cyanosis, No edema Neuro: Normal speech, Cranial nerves 3-12 NL Psych/Mental Status: Mental status NL, Mood NL FINAL DIAGNOSIS Problems Medical Problems: (1) Pneumonia due to COVID-19 virus Status: Acute Brief Hospital Course Mr. Trevino is a 69 old [sex] who presented with [ ] CONDITION AT DISCHARGE: Improved Discharge Medications Current Medications Dexamethasone Sodium Phosphate (Decadron) 10 mg 1X ONCE IVP Last administered on 04/21/20at 17:52; Start 04/21/20 at 16:45; Stop 04/21/20 at 16:46; Status DC Azithromycin 250 ml @ 250 mls/hr 1X ONCE IV Last administered on 04/21/20at 17:53; Start 04/21/20 at 16:45; Stop 04/21/20 at 17:44; Status DC Sodium Chloride 1,000 ml @ 1,000 mls/hr 1X ONCE IV Last administered on 04/21/20at 19:55; Start 04/21/20 at 18:00; Stop 04/21/20 at 18:59; Status DC Iohexol (Omnipaque 350 Mg/ml) 100 ml 1X ONCE IV Last administered on 04/21/20at 18:13; Start 04/21/20 at 18:00; Stop 04/21/20 at 18:01; Status DC Info (CONTRAST GIVEN -- Rx MONITORING) 1 each PRN DAILY PRN MC SEE COMMENTS; Start 04/21/20 at 18:15; Stop 04/23/20 at 18:14 Acetaminophen (Tylenol) 650 mg PRN Q4HRS PRN PO FEVER > 100.3'F; Start 04/21/20 at 19:00; Stop 11/18/20 at 18:59 Influenza Virus Vaccine Quadrival (Fluzone Quad Syringe) 0.5 ml ONCE ONCE VAX IM Last administered on 04/22/20at 11:03; Start 04/22/20 at 09:00; Stop 04/22/20 at 09:01; Status DC Atorvastatin Calcium (Lipitor) 40 mg QHS PO ; Start 04/22/20 at 21:00 Losartan Potassium (Cozaar) 50 mg DAILY PO Last administered on 04/22/20at 1 1:00; Start 04/22/20 at 10:30 Citalopram Hydrobromide (CeleXA) 40 mg DAILY PO Last administered on 04/22/20at 11:00; Start 04/22/20 at 10:30 Pantoprazole Sodium (Protonix) 40 mg DAILYAC PO Last administered on 04/22/20at 10:59; Start 04/22/20 at 10:30 Active Scripts Active Reported Protonix (Pantoprazole Sodium) 20 Mg Tablet.dr 2 Tab PO DAILY Citalopram Hbr (Citalopram Hydrobromide) 40 Mg Tablet 1 Tab PO DAILY Losartan Potassium 50 Mg Tablet 50 Mg PO DAILY Atorvastatin Calcium 40 Mg Tablet 1 Tab PO DAILY [happy pill] [cholesterol med] [bp med] Vital Signs Vital Signs Date Time Temp Pulse Resp B/P (MAP) Pulse Ox O2 Delivery O2 Flow Rate FiO2 04/22/20 11:00 99.3 90 20 161/77 (105) 93 Room Air 99.3 Labs Laboratory Tests Test 04/21/20 15:42 04/21/20 16:50 04/21/20 22:00 04/22/20 00:15 Urine Collection Type Unknown Urine Color Yellow Urine Clarity Clear Urine pH 6.0 (<5.0-8.0) Urine Specific Sarah 1.025 (1.000-1.030) Urine Protein Negative mg/dL (NEG-TRACE) Urine Glucose (UA) >=1000 mg/dL (NEG) Urine Ketones (Stick) Negative mg/dL (NEG) Urine Blood Negative (NEG) Urine Nitrite Negative (NEG) Urine Bilirubin Negative (NEG) Urine Urobilinogen Dipstick 1.0 mg/dL (0.2 mg/dL) Urine Leukocyte Esterase Negative (NEG) Urine RBC 0 /HPF (0-2) Urine WBC 1-4 /HPF (0-4) Urine Squamous Epithelial Cells Few /LPF Urine Transitional Epithelial Cells Few /LPF Urine Bacteria 0 /HPF (0-FEW) Urine Mucus Marked /LPF White Blood Count 10.1 x10^3/uL (4.0-11.0) Red Blood Count 5.67 x10^6/uL (4.30-5.70) Hemoglobin 17.1 g/dL (13.0-17.5) Hematocrit 50.5 % (39.0-53.0) Mean Corpuscular Volume 89 fL (79-100) Mean Corpuscular Hemoglobin 30 pg (25-35) Mean Corpuscular Hemoglobin Concent 34 g/dL (31-37) Red Cell Distribution Width 15.2 % (11.5-14.5) Platelet Count 233 x10^3/uL (140-400) Neutrophils (%) (Auto) 88 % (31-73) Lymphocytes (%) (Auto) 7 % (24-48) Monocytes (%) (Auto) 5 % (0-9) Eosinophils (%) (Auto) 0 % (0-3) Basophils (%) (Auto) 0 % (0-3) Neutrophils # (Auto) 8.9 x10^3/uL (1.8-7.7) Lymphocytes # (Auto) 0.7 x10^3/uL (1.0-4.8) Monocytes # (Auto) 0.5 x10^3/uL (0.0-1.1) Eosinophils # (Auto) 0.0 x10^3/uL (0.0-0.7) Basophils # (Auto) 0.0 x10^3/uL (0.0-0.2) Segmented Neutrophils % 83 % (35-66) Band Neutrophils % 5 % (0-9) Lymphocytes % 9 % (24-48) Monocytes % 3 % (0-10) Toxic Granulation Slight Platelet Estimate Adequate (ADEQUATE) D-Dimer (Earlene) 0.54 ug/mlFEU (0.00-0.50) Sodium Level 137 mmol/L (136-145) Potassium Level 3.6 mmol/L (3.5-5.1) Chloride Level 102 mmol/L (98-107) Carbon Dioxide Level 25 mmol/L (21-32) Anion Gap 10 (6-14) Blood Urea Nitrogen 11 mg/dL (8-26) Creatinine 0.8 mg/dL (0.7-1.3) Estimated GFR (Cockcroft-Gault) 95.3 BUN/Creatinine Ratio 14 (6-20) Glucose Level 156 mg/dL (70-99) Calcium Level 8.3 mg/dL (8.5-10.1) Magnesium Level 1.9 mg/dL (1.8-2.4) Total Bilirubin 0.4 mg/dL (0.2-1.0) Aspartate Amino Transf (AST/SGOT) 34 U/L (15-37) Alanine Aminotransferase (ALT/SGPT) 38 U/L (16-63) Alkaline Phosphatase 82 U/L (46-116) Creatine Kinase 342 U/L (39-308) Creatine Kinase MB (Mass) 7.2 ng/mL (0.0-3.6) Creatine Kinase MB Relative Index 2.1 % (0-4) Troponin I Quantitative < 0.017 ng/mL (0.000-0.055) < 0.017 ng/mL (0.000-0.055) < 0.017 ng/mL (0.000-0.055) GI-Ebs-F-Type Natriuretic Peptide 218 pg/mL (0-124) Total Protein 6.7 g/dL (6.4-8.2) Albumin 2.8 g/dL (3.4-5.0) Albumin/Globulin Ratio 0.7 (1.0-1.7) Laboratory Tests Test 04/21/20 15:42 04/21/20 16:50 04/21/20 22:00 04/22/20 00:15 Urine Collection Type Unknown Urine Color Yellow Urine Clarity Clear Urine pH 6.0 (<5.0-8.0) Urine Specific Sarah 1.025 (1.000-1.030) Urine Protein Negative mg/dL (NEG-TRACE) Urine Glucose (UA) >=1000 mg/dL (NEG) Urine Ketones (Stick) Negative mg/dL (NEG) Urine Blood Negative (NEG) Urine Nitrite Negative (NEG) Urine Bilirubin Negative (NEG) Urine Urobilinogen Dipstick 1.0 mg/dL (0.2 mg/dL) Urine Leukocyte Esterase Negative (NEG) Urine RBC 0 /HPF (0-2) Urine WBC 1-4 /HPF (0-4) Urine Squamous Epithelial Cells Few /LPF Urine Transitional Epithelial Cells Few /LPF Urine Bacteria 0 /HPF (0-FEW) Urine Mucus Marked /LPF White Blood Count 10.1 x10^3/uL (4.0-11.0) Red Blood Count 5.67 x10^6/uL (4.30-5.70) Hemoglobin 17.1 g/dL (13.0-17.5) Hematocrit 50.5 % (39.0-53.0) Mean Corpuscular Volume 89 fL (79-100) Mean Corpuscular Hemoglobin 30 pg (25-35) Mean Corpuscular Hemoglobin Concent 34 g/dL (31-37) Red Cell Distribution Width 15.2 % (11.5-14.5) Platelet Count 233 x10^3/uL (140-400) Neutrophils (%) (Auto) 88 % (31-73) Lymphocytes (%) (Auto) 7 % (24-48) Monocytes (%) (Auto) 5 % (0-9) Eosinophils (%) (Auto) 0 % (0-3) Basophils (%) (Auto) 0 % (0-3) Neutrophils # (Auto) 8.9 x10^3/uL (1.8-7.7) Lymphocytes # (Auto) 0.7 x10^3/uL (1.0-4.8) Monocytes # (Auto) 0.5 x10^3/uL (0.0-1.1) Eosinophils # (Auto) 0.0 x10^3/uL (0.0-0.7) Basophils # (Auto) 0.0 x10^3/uL (0.0-0.2) Segmented Neutrophils % 83 % (35-66) Band Neutrophils % 5 % (0-9) Lymphocytes % 9 % (24-48) Monocytes % 3 % (0-10) Toxic Granulation Slight Platelet Estimate Adequate (ADEQUATE) D-Dimer (Earlene) 0.54 ug/mlFEU (0.00-0.50) Sodium Level 137 mmol/L (136-145) Potassium Level 3.6 mmol/L (3.5-5.1) Chloride Level 102 mmol/L (98-107) Carbon Dioxide Level 25 mmol/L (21-32) Anion Gap 10 (6-14) Blood Urea Nitrogen 11 mg/dL (8-26) Creatinine 0.8 mg/dL (0.7-1.3) Estimated GFR (Cockcroft-Gault) 95.3 BUN/Creatinine Ratio 14 (6-20) Glucose Level 156 mg/dL (70-99) Calcium Level 8.3 mg/dL (8.5-10.1) Magnesium Level 1.9 mg/dL (1.8-2.4) Total Bilirubin 0.4 mg/dL (0.2-1.0) Aspartate Amino Transf (AST/SGOT) 34 U/L (15-37) Alanine Aminotransferase (ALT/SGPT) 38 U/L (16-63) Alkaline Phosphatase 82 U/L (46-116) Creatine Kinase 342 U/L (39-308) Creatine Kinase MB (Mass) 7.2 ng/mL (0.0-3.6) Creatine Kinase MB Relative Index 2.1 % (0-4) Troponin I Quantitative < 0.017 ng/mL (0.000-0.055) < 0.017 ng/mL (0.000-0.055) < 0.017 ng/mL (0.000-0.055) VE-Mzk-D-Type Natriuretic Peptide 218 pg/mL (0-124) Total Protein 6.7 g/dL (6.4-8.2) Albumin 2.8 g/dL (3.4-5.0) Albumin/Globulin Ratio 0.7 (1.0-1.7) Allergies Allergies Coded Allergies Type Severity Reaction Last Updated Verified No Known Drug Allergies 04/01/15 No Disposition/Orders: D/C to Home Justicifation of Admission Dx: Justifications for Admission: Justification of Admission Dx: No Acute COPD Exacerbation: Acute COPD Exacerbation RANDALL DIXON MD Apr 22, 2020 11:28
[2020-04-22] MEDS ORDERED: PRED-220 PO (11:32)
[2020-04-22] MEDS ORDERED: ACET325T9 PO (11:32)
[2020-04-22] MEDS ORDERED: AZIT250T6 PO (11:32)
--- NOTE | 2020-04-22 11:33 | DISCH ---
DISCHARGE INSTRUCTIONS Condition on Discharge Condition on Discharge: Stable Activity After Discharge Activity Instructions for Disc: Activity as tolerated Driving Instructions after Dis: Do not drive Diet after Discharge Diet after Discharge: Cardiac Liquid Texture: Thin Liquid Contacting the DRBecca after DC Call your doctor for: If your condition worsens Warfarin Follow-Up Warfarin Follow UP: SEE PCP IN 3-5 DAYS RANDALL DIXON MD Apr 22, 2020 11:33
--- NOTE | 2020-04-22 13:01 | PDOC ---
PULMONARY PROGRESS NOTES DATE: 04/22/20 TIME: 13:00 Vitals Vital Signs Date Time Temp Pulse Resp B/P (MAP) Pulse Ox O2 Delivery O2 Flow Rate FiO2 04/22/20 11:00 99.3 90 20 161/77 (105) 93 Room Air 99.3 Labs Laboratory Tests Test 04/21/20 15:42 04/21/20 16:50 04/21/20 22:00 04/22/20 00:15 Urine Collection Type Unknown Urine Color Yellow Urine Clarity Clear Urine pH 6.0 (<5.0-8.0) Urine Specific Troy 1.025 (1.000-1.030) Urine Protein Negative mg/dL (NEG-TRACE) Urine Glucose (UA) >=1000 mg/dL (NEG) Urine Ketones (Stick) Negative mg/dL (NEG) Urine Blood Negative (NEG) Urine Nitrite Negative (NEG) Urine Bilirubin Negative (NEG) Urine Urobilinogen Dipstick 1.0 mg/dL (0.2 mg/dL) Urine Leukocyte Esterase Negative (NEG) Urine RBC 0 /HPF (0-2) Urine WBC 1-4 /HPF (0-4) Urine Squamous Epithelial Cells Few /LPF Urine Transitional Epithelial Cells Few /LPF Urine Bacteria 0 /HPF (0-FEW) Urine Mucus Marked /LPF White Blood Count 10.1 x10^3/uL (4.0-11.0) Red Blood Count 5.67 x10^6/uL (4.30-5.70) Hemoglobin 17.1 g/dL (13.0-17.5) Hematocrit 50.5 % (39.0-53.0) Mean Corpuscular Volume 89 fL (79-100) Mean Corpuscular Hemoglobin 30 pg (25-35) Mean Corpuscular Hemoglobin Concent 34 g/dL (31-37) Red Cell Distribution Width 15.2 % (11.5-14.5) Platelet Count 233 x10^3/uL (140-400) Neutrophils (%) (Auto) 88 % (31-73) Lymphocytes (%) (Auto) 7 % (24-48) Monocytes (%) (Auto) 5 % (0-9) Eosinophils (%) (Auto) 0 % (0-3) Basophils (%) (Auto) 0 % (0-3) Neutrophils # (Auto) 8.9 x10^3/uL (1.8-7.7) Lymphocytes # (Auto) 0.7 x10^3/uL (1.0-4.8) Monocytes # (Auto) 0.5 x10^3/uL (0.0-1.1) Eosinophils # (Auto) 0.0 x10^3/uL (0.0-0.7) Basophils # (Auto) 0.0 x10^3/uL (0.0-0.2) Segmented Neutrophils % 83 % (35-66) Band Neutrophils % 5 % (0-9) Lymphocytes % 9 % (24-48) Monocytes % 3 % (0-10) Toxic Granulation Slight Platelet Estimate Adequate (ADEQUATE) D-Dimer (Earlene) 0.54 ug/mlFEU (0.00-0.50) Sodium Level 137 mmol/L (136-145) Potassium Level 3.6 mmol/L (3.5-5.1) Chloride Level 102 mmol/L (98-107) Carbon Dioxide Level 25 mmol/L (21-32) Anion Gap 10 (6-14) Blood Urea Nitrogen 11 mg/dL (8-26) Creatinine 0.8 mg/dL (0.7-1.3) Estimated GFR (Cockcroft-Gault) 95.3 BUN/Creatinine Ratio 14 (6-20) Glucose Level 156 mg/dL (70-99) Calcium Level 8.3 mg/dL (8.5-10.1) Magnesium Level 1.9 mg/dL (1.8-2.4) Total Bilirubin 0.4 mg/dL (0.2-1.0) Aspartate Amino Transf (AST/SGOT) 34 U/L (15-37) Alanine Aminotransferase (ALT/SGPT) 38 U/L (16-63) Alkaline Phosphatase 82 U/L (46-116) Creatine Kinase 342 U/L (39-308) Creatine Kinase MB (Mass) 7.2 ng/mL (0.0-3.6) Creatine Kinase MB Relative Index 2.1 % (0-4) Troponin I Quantitative < 0.017 ng/mL (0.000-0.055) < 0.017 ng/mL (0.000-0.055) < 0.017 ng/mL (0.000-0.055) ES-Pjl-J-Type Natriuretic Peptide 218 pg/mL (0-124) Total Protein 6.7 g/dL (6.4-8.2) Albumin 2.8 g/dL (3.4-5.0) Albumin/Globulin Ratio 0.7 (1.0-1.7) Laboratory Tests Test 04/21/20 15:42 04/21/20 16:50 04/21/20 22:00 04/22/20 00:15 Urine Collection Type Unknown Urine Color Yellow Urine Clarity Clear Urine pH 6.0 (<5.0-8.0) Urine Specific Troy 1.025 (1.000-1.030) Urine Protein Negative mg/dL (NEG-TRACE) Urine Glucose (UA) >=1000 mg/dL (NEG) Urine Ketones (Stick) Negative mg/dL (NEG) Urine Blood Negative (NEG) Urine Nitrite Negative (NEG) Urine Bilirubin Negative (NEG) Urine Urobilinogen Dipstick 1.0 mg/dL (0.2 mg/dL) Urine Leukocyte Esterase Negative (NEG) Urine RBC 0 /HPF (0-2) Urine WBC 1-4 /HPF (0-4) Urine Squamous Epithelial Cells Few /LPF Urine Transitional Epithelial Cells Few /LPF Urine Bacteria 0 /HPF (0-FEW) Urine Mucus Marked /LPF White Blood Count 10.1 x10^3/uL (4.0-11.0) Red Blood Count 5.67 x10^6/uL (4.30-5.70) Hemoglobin 17.1 g/dL (13.0-17.5) Hematocrit 50.5 % (39.0-53.0) Mean Corpuscular Volume 89 fL (79-100) Mean Corpuscular Hemoglobin 30 pg (25-35) Mean Corpuscular Hemoglobin Concent 34 g/dL (31-37) Red Cell Distribution Width 15.2 % (11.5-14.5) Platelet Count 233 x10^3/uL (140-400) Neutrophils (%) (Auto) 88 % (31-73) Lymphocytes (%) (Auto) 7 % (24-48) Monocytes (%) (Auto) 5 % (0-9) Eosinophils (%) (Auto) 0 % (0-3) Basophils (%) (Auto) 0 % (0-3) Neutrophils # (Auto) 8.9 x10^3/uL (1.8-7.7) Lymphocytes # (Auto) 0.7 x10^3/uL (1.0-4.8) Monocytes # (Auto) 0.5 x10^3/uL (0.0-1.1) Eosinophils # (Auto) 0.0 x10^3/uL (0.0-0.7) Basophils # (Auto) 0.0 x10^3/uL (0.0-0.2) Segmented Neutrophils % 83 % (35-66) Band Neutrophils % 5 % (0-9) Lymphocytes % 9 % (24-48) Monocytes % 3 % (0-10) Toxic Granulation Slight Platelet Estimate Adequate (ADEQUATE) D-Dimer (Earlene) 0.54 ug/mlFEU (0.00-0.50) Sodium Level 137 mmol/L (136-145) Potassium Level 3.6 mmol/L (3.5-5.1) Chloride Level 102 mmol/L (98-107) Carbon Dioxide Level 25 mmol/L (21-32) Anion Gap 10 (6-14) Blood Urea Nitrogen 11 mg/dL (8-26) Creatinine 0.8 mg/dL (0.7-1.3) Estimated GFR (Cockcroft-Gault) 95.3 BUN/Creatinine Ratio 14 (6-20) Glucose Level 156 mg/dL (70-99) Calcium Level 8.3 mg/dL (8.5-10.1) Magnesium Level 1.9 mg/dL (1.8-2.4) Total Bilirubin 0.4 mg/dL (0.2-1.0) Aspartate Amino Transf (AST/SGOT) 34 U/L (15-37) Alanine Aminotransferase (ALT/SGPT) 38 U/L (16-63) Alkaline Phosphatase 82 U/L (46-116) Creatine Kinase 342 U/L (39-308) Creatine Kinase MB (Mass) 7.2 ng/mL (0.0-3.6) Creatine Kinase MB Relative Index 2.1 % (0-4) Troponin I Quantitative < 0.017 ng/mL (0.000-0.055) < 0.017 ng/mL (0.000-0.055) < 0.017 ng/mL (0.000-0.055) XI-Vfr-D-Type Natriuretic Peptide 218 pg/mL (0-124) Total Protein 6.7 g/dL (6.4-8.2) Albumin 2.8 g/dL (3.4-5.0) Albumin/Globulin Ratio 0.7 (1.0-1.7) Medications Active Scripts Medications Dose Route/Sig Max Daily Dose Days Date Category Dose Instructions Prednisone (Prednisone) 10 Mg Tablet 10 Mg PO UD 04/22/20 Rx Take 3 tablets by mouth twice a day for 3 days, then take 2 tablets by mouth twice a day for 3 days, then take 1 tablet by mouth twice a day for 3 days, then take 1 tablet by mouth daily x 3 days, then stop. Azithromycin Tablet (Azithromycin) 250 Mg Tablet 1 Pkg PO UD 5 04/22/20 Rx 2 the first day followed by 1 for days 2-5 Tylenol (Acetaminophen) 325 Mg Tablet 650 Mg PO PRN Q4HRS PRN 30 04/22/20 Rx Protonix (Pantoprazole Sodium) 20 Mg Tablet.dr 2 Tab PO DAILY 04/22/20 Reported Citalopram Hbr (Citalopram Hydrobromide) 40 Mg Tablet 1 Tab PO DAILY 04/22/20 Reported Losartan Potassium 50 Mg Tablet 50 Mg PO DAILY 04/22/20 Reported Atorvastatin Calcium 40 Mg Tablet 1 Tab PO DAILY 04/22/20 Reported Impression . Full note dictated Discussed with MAKSIM rey to discharge home Follow-up in the office in 2 to 4 weeks VITOR ESPINAL MD Apr 22, 2020 13:00
--- NOTE | 2020-04-22 13:42 | CONS ---
DATE OF CONSULTATION: 04/22/2020 ATTENDING PHYSICIAN: Dr. Hoyos. REASON FOR CONSULTATION: The patient is seen in pulmonary consultation at the request of Dr. Hoyos for COVID-19 positive, abnormal CT chest revealing bilateral patchy consolidation. HISTORY OF PRESENT ILLNESS: The patient is a 69-year-old that normally sees Dr. Rucker in the office. He has underlying COPD and a history of tobacco use. He quit tobacco 15 years ago. On Monday, he went to ____ clinic, had a COVID testing, not clear if he had PCR or antigen testing. He was positive. The patient was informed of the above. He presented to the Emergency Room for evaluation of increasing shortness of breath. No chills. He has just been weak. Body ache, shortness of breath. He denied any chest pain. No pressure, no prior history of DVT or pulmonary embolism. The patient underwent CT angiogram revealed no evidence of pulmonary emboli. There was consolidation bilaterally. PAST MEDICAL HISTORY: Remarkable for COPD; tobacco dependence, in remission; hyperlipidemia; hypertension. PAST SURGICAL HISTORY: Previous appendectomy, cholecystectomy, knee surgery. ALLERGIES: No known drug allergies. REVIEW OF SYSTEMS: CONSTITUTIONAL: Positive for fever. EYES: No change in visual acuity. HENT: No nasal congestion or sore throat. PULMONARY: As indicated above. CARDIOVASCULAR: No chest pain. No pressure. GASTROINTESTINAL: No nausea, vomiting, diarrhea. GENITOURINARY: No dysuria or frequency. MUSCULOSKELETAL: No localized muscle aches or joint pain. SKIN: No new skin rashes. NEUROLOGIC: No headaches, diplopia or blurred vision. 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 FAMILY HISTORY: No family history of lung disorders. He has had no recent exposures to anyone with COVID-19. MEDICATIONS: List was reviewed. PHYSICAL EXAMINATION: VITAL SIGNS: Since admission, the patient has been afebrile. O2 saturation is currently on room air saturation greater than 92%. HEENT: Eyes, the sclerae were nonicteric. NECK: Jugular venous distention was not elevated. No lymphadenopathy. CHEST: Full expansion. LUNGS: Crackles and expiratory wheeze. CARDIOVASCULAR: Regular rate and rhythm with S1, S2, no S3. ABDOMEN: Soft, nontender, nondistended. EXTREMITIES: No clubbing, cyanosis or edema. LABORATORY DATA: White count was normal. lymphopenia was present. AST and ALT were noted to be normal. BNP was slightly elevated. Troponin was ____ normal. Albumin was low. D-dimer was elevated. IMPRESSION: 1. COVID-19 viral pneumonia and mild symptoms. 2. Fever secondary to above. 3. Abnormal CT chest revealing bilateral infiltrates compatible with COVID-19 viral pneumonia. 4. Chronic obstructive pulmonary disease with acute exacerbation. 5. Tobacco dependence, in remission. 6. Recent COVID-19 testing positive. PLAN: Considering the patient's minimal symptoms and lack of oxygen needs. I recommended he be discharged home on oral antibiotics. Follow up with PCP in 3-5 days. He is also to follow up with Dr. Rucker in the office in 2-4 weeks. He will be discharged home on Zithromax and p.o. steroids. I do appreciate the privilege in sharing in the patient's care. VITOR ESPINAL MD DR: FLORES/franklyn JOB#: [id number] / [id number]
--- NOTE | 2020-04-22 14:45 | NUR ---
Pt discharged with all belongings and IV and telemonitor discontinued. Wheeled out with discharge information by Caro YANES to main entrance.
--- NOTE | 2020-04-22 16:35 | NUR ---
SW following for discharge planning. Spoke with RN and reviewed chart. Pt discharged self-care. No SW needs on discharge per RN.
[2020-04-22] MEDS ORDERED: ATORVASTATIN CALCIUM 40 MG TABLET. PO SCH (21:00)
== END 2020-04-22 14:45 | disposition home or self-care (01) | DRG 177 ==
LOC: ER 13:40 → 6 SOUTH 18:44
PROVIDERS: ADMIT Family Medicine; ATTEND Family Medicine
DX: U07.1 COVID-19 (principal); J12.89 Other viral pneumonia; J44.0 Chronic obstructive pulmonary disease with (acute) lower respiratory infection; J44.1 Chronic obstructive pulmonary disease with (acute) exacerbation; E78.00 Pure hypercholesterolemia, unspecified; E78.5 Hyperlipidemia, unspecified; F17.201 Nicotine dependence, unspecified, in remission; I10 Essential (primary) hypertension; F41.9 Anxiety disorder, unspecified; Z82.49 Family history of ischemic heart disease and other diseases of the circulatory system; Z90.49 Acquired absence of other specified parts of digestive tract; Z79.899 Other long term (current) drug therapy
CPT/HCPCS: 36415; 71275; 80053; 81001; 82553; 83735; 83880; 84484; 85007; 85025; 85379; 87040; 90471; 90686; 93005; 96361; 96365; 96375; J0456; J1100; J7030; Q9967; 99285-25; G0378